=== PATIENT | male | born 1935 | race Caucasian/White ===

== ENCOUNTER → 2017-05-03 | Outpatient (CLI) | payer OTHER ==
[~2017-05-03] MED LIST: CLOPIDOGREL75 MG PO; FISH OIL 1,0001 EAC7 PO; FOSAMAX70 MG PO; LO-DOSE ASPIRIN81 M2 PO; LOSARTAN POTASS50 MG PO; METFORMIN HCL500 MG PO; METOPROLOL TART25 MG PO; METOPROLOL TART50 MG PO; NITROSTAT0.4 MG SL; RANITIDINE HCL150 MG PO; SIMVASTATIN40 MG PO; TAMSULOSIN HCL0.4 MG PO; VITAMIN D31000 UNIT PO
== END | disposition home or self-care (01) ==
LOC: NUC 09:23
DX: R93.7 Abnormal findings on diagnostic imaging of other parts of musculoskeletal system (principal); Z96.653 Presence of artificial knee joint, bilateral
CPT/HCPCS: 78315; A9503

== ENCOUNTER → 2017-07-04 | Outpatient (CLI) | payer OTHER | END | disposition home or self-care (01) | DX: R26.2 Difficulty in walking, not elsewhere classified (principal); M17.11 Unilateral primary osteoarthritis, right knee; M25.562 Pain in left knee; M25.662 Stiffness of left knee, not elsewhere classified; M62.81 Muscle weakness (generalized); Z74.1 Need for assistance with personal care | CPT/HCPCS: 97110 GP; 97150 GO; 97161 GP; 97165 GO; G8978 GP; G8979 GP; G8980 GP; G8987 GO; G8988 GO; G8989 GO ==

== ENCOUNTER 2017-07-30 23:41 | Inpatient (IN) | payer OTHER ==
[~2017-07-30] VITALS: Ht 170.2 cm; Wt 87.4 kg
[~2017-07-30 23:41] MED LIST changes: +AVODART0.5 MG PO; +FEOSOL325 MG PO; +GLUCOTROL XL2.5 MG PO; +TYLENOL EXTRA500 MG PO
[2017-07-31 06:09] VITALS: BP 132/70
[2017-07-31 06:36] LABS: POINT-OF-CARE METER ID UU14174212
[2017-07-31 06:46] LABS: INTER. NORMALIZED RATIO 1.2
[2017-07-31 11:16] LABS: POINT-OF-CARE METER ID UU13113675
[2017-07-31 12:02] LABS: HEMATOCRIT 38.8 % (38.0-50.0); MCH 30.5 PG (29.0-34.0); MCV 92.4 FL (86-99); MEAN PLAT.VOLUME 9.2 uM^3 (9.0-12.4); PLATELET COUNT 125 K/uL (156-360); RBC DIS.WIDTH-CV 13.3 % (11.8-14.6); RBC DIS.WIDTH-SD 45.2 % (39-53); WHITE BLOOD COUNT 4.9 K/uL (4.1-10.2)
[2017-07-31 15:21] VITALS: BP 105/52
[2017-07-31 16:43] LABS: POINT-OF-CARE METER ID UU13113712
[2017-07-31 19:32] VITALS: BP 118/60
[2017-07-31 22:01] LABS: POINT-OF-CARE METER ID UU13113712
[2017-07-31 23:54] VITALS: BP 103/59
[2017-08-01 04:19] VITALS: BP 108/52
[2017-08-01 07:03] LABS: HEMATOCRIT 42.2 % (38.0-50.0); MCV 93.8 FL (86-99)
[2017-08-01 07:27] LABS: ANION GAP 6 MEQ/L (2-14); CHLORIDE 101 MEQ/L (99-109); GFR ESTIMATE (CALCULATED) > 59 mL/min/; GLUCOSE 159 mg/dL (70-99); POTASSIUM 4.3 MEQ/L (3.7-5.4); SAMPLE HEMOLYSIS CHECK 0; SAMPLE ICTERIC CHECK 0; SAMPLE LIPEMIA CHECK 0; SODIUM 136 MEQ/L (136-147); UREA NITROGEN (BUN) 18 mg/dL (9-23)
[2017-08-01 08:12] VITALS: BP 128/59
[2017-08-01 12:02] VITALS: BP 128/58
[2017-08-01 12:05] LABS: POINT-OF-CARE METER ID UU13113712
[2017-08-01 15:48] VITALS: BP 121/62
[2017-08-01 16:32] LABS: POINT-OF-CARE METER ID UU13113712
[2017-08-01 19:49] VITALS: BP 136/65
[2017-08-01 21:46] LABS: POINT-OF-CARE METER ID UU13113712
[2017-08-01 23:53] VITALS: BP 114/59
[2017-08-02 04:12] VITALS: BP 135/75
[2017-08-02 06:04] LABS: HEMATOCRIT 36.9 % (38.0-50.0); MCV 92.7 FL (86-99)
[2017-08-02 08:07] LABS: POINT-OF-CARE METER ID UU13113712
[2017-08-02] MEDS ORDERED: CELECOXIB200 MG PO (09:15)
[2017-08-02] MEDS ORDERED: LOVENOX40 MG/0.4 SC (09:15)
[2017-08-02] MEDS ORDERED: ENDOCET 5-3251 EACH PO (09:15)
[2017-08-02] MEDS ORDERED: DOCUSATE SODIU100 MG PO (09:15)
[2017-08-02 12:07] VITALS: BP 121/61
[2017-08-02 12:11] LABS: POINT-OF-CARE METER ID UU13113712
== END 2017-08-02 14:34 | DRG 470 ==
LOC: ENRESERV 23:41 → 2SOUTH 07-31 05:18 → 3WEST 07-31 05:18 → 2SOUTH 07-31 10:11 → 3WEST 07-31 12:54 → 2SOUTH 07-31 14:46 → 3WEST 08-02 14:34
PROVIDERS: Orthopaedic Surgery
PROC: 0SRD0J9 Replacement of Left Knee Joint with Synthetic Substitute, Cemented, Open Approach (ICD-10-PCS; principal; 2017-07-31)
DX: T84.093A Other mechanical complication of internal left knee prosthesis, initial encounter (principal); Y79.2 Prosthetic and other implants, materials and accessory orthopedic devices associated with adverse incidents; E11.65 Type 2 diabetes mellitus with hyperglycemia; I10 Essential (primary) hypertension; I25.10 Atherosclerotic heart disease of native coronary artery without angina pectoris; M15.9 Polyosteoarthritis, unspecified; G47.30 Sleep apnea, unspecified; H91.90 Unspecified hearing loss, unspecified ear; K21.9 Gastro-esophageal reflux disease without esophagitis; N40.1 Benign prostatic hyperplasia with lower urinary tract symptoms; Z95.5 Presence of coronary angioplasty implant and graft; Z95.1 Presence of aortocoronary bypass graft; Z68.30 Body mass index [BMI] 30.0-30.9, adult; Z79.02 Long term (current) use of antithrombotics/antiplatelets; Z87.891 Personal history of nicotine dependence; Z79.899 Other long term (current) drug therapy; Z79.82 Long term (current) use of aspirin; Z80.0 Family history of malignant neoplasm of digestive organs; Z82.49 Family history of ischemic heart disease and other diseases of the circulatory system
CPT/HCPCS: 73560; 80048; 82948; 85014; 85018; 85027; 85610; 97530 GO; C1713; C1776; J0690; J1170; J1650; J1815; J1885; J2250; J2405; J7050